=== PATIENT | female | born 1965 | race Caucasian/White ===

== ENCOUNTER → 2021-03-30 | Outpatient (CLI) | payer OTHER ==
--- NOTE | 2021-03-30 17:43 | RAD ---
EXAM: AP, lateral and oblique views of the left knee DATE: 03/30/2021 1:51 PM CLINICAL INDICATION: Reason: LEFT KNEE PAIN, FELL IN 2019 / Spl. Instructions: / History: COMPARISON: None. FINDINGS: Negative for acute or subacute fracture. Moderate medial compartment joint space narrowing with tric ompartmental osteophytes. Negative focal soft tissue swelling. Negative retained radiopaque foreign b madhu. There is no large joint effusion. Patellar enthesopathy. IMPRESSION: 1. Moderate tricompartmental degenerative changes. 2. Patellar enthesopathy. Electronically signed by: Juan Gaines MD (03/30/2021 5:41 PM) [id number]
== END ==
LOC: RAD 13:43
PROVIDERS: ATTEND Family Medicine
DX: M17.12 Unilateral primary osteoarthritis, left knee (principal); M76.52 Patellar tendinitis, left knee
CPT/HCPCS: 73562

== ENCOUNTER → 2021-05-30 | Outpatient (CLI) | payer OTHER ==
--- NOTE | 2021-05-30 16:11 | RAD ---
MG 2D BILAT SCREENING 05/30/2021 10:10 AM INDICATION: Asymptomatic screening mammogram. COMPARISON: None available TECHNIQUE: 2D CC and MLO projections were obtained of each breast. FINDINGS: Breast density: Category B: There are scattered areas of fibroglandular density. Right breast: There are no suspicious microcalcifications, masses or areas of architectural distortio n. Left breast: There are no suspicious microcalcifications, masses or areas of architectural distortion . Bilateral mammogram is compared to prior examinations appears unchanged. IMPRESSION: Negative bilateral mammogram. BI-RADS category: 1; Negative Recommendations: Recommend annual screening mammography in one year. Electronically signed by: Noemy Lozano MD (05/30/2021 4:09 PM) [email or web address]
== END ==
LOC: MAMMO 09:46
PROVIDERS: ATTEND Family Medicine
DX: Z12.31 Encounter for screening mammogram for malignant neoplasm of breast (principal)
CPT/HCPCS: 77067